=== PATIENT | male | born 1970 | race Caucasian/White ===

== ENCOUNTER 2021-07-18 12:30 | Emergency (ER) | payer OTHER ==
--- OUTSIDE RECORDS SUMMARY | 2021-07-18 12:39 | XMS REPORT | Continuity of Care Document ---
:1970 Author Organization [facility] t Address [address] [place] [address] Care Team Providers Name Role Phone VIVI Attending Clinician Unavailable RUSSELL LUO Attending Clinician Unavailable WILMA MONSIVAIS Attending Clinician Unavailable CARROLL VICTORIA Attending Clinician Unavailable GILSERA_L_WAG Attending Clinician Unavailable GILBERT_L_WAG Admitting Clinician Unavailable Payers Payer Name Policy Type Policy Number Effective Date Expiration Date S ource GROUP \T\ PENSION [id number] 2014 [employer] - [facility] 00:00:00 Problems This patient has no known problems. Allergies, Adverse Reactions, Alerts This patient has no known allergies or adverse reactions. Social History Smoking Status Start Date Stop Date Source Never Smoker Rosa Domínguez P joselyn Medications Ordered Filled Start Stop Current Ordering Indication Dosage Frequency Signature Comments Components Source Medication Medication Date Date Medication? Clinician (SIG) Name Name Augmentin Augmentin No 1 Q12H Augmentin [facility] 875 mg-125 875 mg-125 875 mg-125 Family mg tablet mg tablet mg tablet Practic Take 1 Take 1 Take 1 e tablet tablet tablet every 12 every 12 every 12 hours by hours by hours by oral route oral route oral route for 7 days. for 7 days. for 7 days. neomycin-po neomycin-po No neomycin-p [facility] lymyxin-hyd lymyxin-hyd olymyxin-h Family rocort 3.5 rocort 3.5 ydrocort Practic mg-10,000 mg-10,000 3.5 e unit/mL-1 % unit/mL-1 % mg-10,000 ear ear unit/mL-1 drops,susp drops,susp % ear INSTILL 4 INSTILL 4 drops,susp DROPS INTO DROPS INTO INSTILL 4 AFFECTED AFFECTED DROPS INTO EAR(S) BY EAR(S) BY AFFECTED OTIC ROUTE OTIC ROUTE EAR(S) BY 3 TIMES PER 3 TIMES PER OTIC ROUTE DAY DAY 3 TIMES PER DAY Vital Signs Vital Name Observation Time Observation Value Comments Source Height 2019-09-28 00:00:00 76 [in_i] [facility] Family Practice Procedures Procedure Date / Time Performed Performing Clinician Sour e Hernia Repair 2009-02-15 00:00:00 [facility] Michael paris Practice Knee Surgery 2005-02-15 00:00:00 [facility] raina Practice Encounters Start End Encounter Admission Attending Care Care Encounter Source Date/Time Date/Time Type Type Clinicians Facility Department ID 2021-06-09 2021-06-09 Outpatient TRINIDAD, [facility] [id number] [place] 00:00:00 00:00:00 ESTEPHANIE [address] [facility] 2021-06-04 2021-06-04 Emergency E ROYER LUO [facility] [id number] 11:05:00 18:02:[address] [facility] 2021-05-28 2021-05-28 Outpatient TRINIDAD, [facility] [id number] [place] 00:00:00 00:00:00 ESTEPHANIE [address] 2021-03-11 2021-03-11 Outpatient [facility] [id number] [place] 00:00:00 00:00:[address] 2020-12-26 2020-12-26 Outpatient WILMA MONSIVAIS, [facility] [id number] [place] 00:00:00 00:00:00 SHAHZAD [address] 2020-12-19 2020-12-19 Outpatient [facility] [id number] [place] 00:00:00 00:00:[address] 2020-10-23 2020-10-23 Outpatient [facility] [id number] [place] 00:00:00 00:00:[address] 2020-10-16 2020-10-16 Emergency E ROYER VICTORIA [facility] [id number] 13:03:00 15:51:[address] [facility] 2019-10-03 2019-10-03 Outpatient GILBERT_L_W VFP VFP [id number] [facility] 05:10:00 05:10:00 AG [id number] Family Practic e 2019-09-28 2019-09-28 Outpatient MICHAEL_L_W VFP VFP [id number] [facility] 01:02:00 01:02:00 AG [id number] Family Practic e 2019-09-28 2019-09-28 Rahul VFP [place] - [id number] [place] 00:00:00 00:00:00 [facility] Michael, Medical - Pract DO: 102 VM_HOU_N. e [facility] Adelaidalouise ([address], [facility] [place] [address] , Ph. Results This patient has no known results.
[2021-07-18 13:57] LABS: Absolute Lymphocytes (CBC) 2.1 K/uL (0.7-4.9); Lymphocytes % 25.8 % (15.3-44.8); MPV 7.7 fL (7.6-11.3); RBC Red Blood Cell Count 5.06 M/uL (4.33-5.43)
--- NOTE | 2021-07-18 13:58 | RAD REPORT ---
EXAM DESCRIPTION: CT - Head Brain Wo Cont - 07/18/2021 1:35 pm CLINICAL HISTORY: Headache, sudden, severe COMPARISON: No comparisons TECHNIQUE: Axial 5 mm thick images of the head were obtained without IV contrast. All CT scans are performed using dose optimization technique as appropriate and may include automated exposure control or mA/KV adjustment according to patient size. FINDINGS: Approximately 2.5 centimeter rounded area of heterogeneous hyperdense and hypodense materi al is seen in the superior aspect of the right cerebellum abutting the undersurface of the tentorium. The hyperdense component is suspicious for hemorrhage. This may be hemorrhage related to a mass rath er than CVA. Thickening and hyperdensity along the medial margin of the right-side tentorium may be h emorrhage extending along the undersurface of the tentorium. A focal intraparenchymal hematoma from C VA is a primary consideration. Hemorrhage related to a mass in the cerebellum would also be a conside ration. Elsewhere no mass lesion is seen. No acute cortical based infarction identifiable. No midline shift. Ventricles are normal. No significant atrophy or chronic ischemic changes seen. Mastoid air cells and visualized portions of the paranasal sinuses are clear. No acute bony findings. Findings telephoned to the referring clinician 1:49 p.m. IMPRESSION: Approximately 2.5 centimeter rounded mixed density mass superior aspect of the right cer ebellum. Hyperdense component is believed to be hemorrhage rather than dense or mineralized tissue. Small focus of hyperdensity along the undersurface of the right-side tentorium is believed to be subd ural blood extending from the focal intraparenchymal finding. Focal hypertensive or CVA related hemorrhage would be a primary consideration. However, the possibili ty of a hemorrhagic mass lesion is equally likely. No other acute intracranial finding.
[2021-07-18] MEDS ORDERED: LORazepam 2 MG/ML VIAL ONE (14:00)
[2021-07-18 14:03] LABS: Protime INR 0.92
[2021-07-18 14:19] LABS: Albumin 4.1 g/dL (3.4-5.0); Bilirubin Total 0.4 mg/dL (0.2-1.0); Potassium 3.8 mmol/L (3.5-5.1); Protein, Total 7.6 g/dL (6.4-8.2); Troponin High Sensitivity 5.1 pg/mL (<58.9)
[2021-07-18] MEDS ORDERED: MORPHINE 4 MG/ML SYR ONE ×2 (14:50→14:52)
[2021-07-18] MEDS ORDERED: ONDANSETRON 4 MG/2 ML VIAL ONE ×2 (14:50→14:52)
--- NOTE | 2021-07-18 15:02 | RAD REPORT ---
EXAM DESCRIPTION: CT - Head Brain Wo Cont - 07/18/2021 2:52 pm CLINICAL HISTORY: Headache, sudden, severe, acute mental status change, abnormal CT head COMPARISON: Head Brain Wo Cont dated 07/18/2021 TECHNIQUE: Axial 5 mm thick images of the head were obtained without IV contrast. All CT scans are performed using dose optimization technique as appropriate and may include automated exposure control or mA/KV adjustment according to patient size. FINDINGS: The right superior cerebellum intraparenchymal hemorrhage or hemorrhagic mass has enlarged , now measuring 2.9 x 3.5 cm. The subdural hemorrhagic component along the undersurface of the tentor ium has also enlarged slightly. Localized mass effect has developed with the right lateral margin of the fourth ventricle compressed. Lateral and third ventricles are still normal range. No other site o f hemorrhage or focal abnormality. Mastoid air cells and visualized portions of the paranasal sinuses are clear. No acute bony findings. IMPRESSION: Previously detailed right cerebellum intraparenchymal hemorrhage or hemorrhagic mass aga in noted with the hemorrhagic component enlarging. Overall dimensions are now 2.9 x 3.5 cm compared t o 2.5 x 2.5 cm. The subdural hemorrhagic extension along the undersurface of the right-side tentorium has also increa sed now up to 7 mm in thickness. No midline shift has occurred though there is now partial compression along the right lateral margin of the fourth ventricle.
--- NOTE | 2021-07-18 15:04 | ER ---
Nurse's Notes [facility] Name: Lauro Mark Age: 51 yrs Sex: Male : 1970 Arrival Date: 07/18/2021 Time: 12:32 Bed 16 Private MD: Diagnosis: Nontraumatic intracranial hemorrhage, unspecified Presentation: 07/18 12:59 Chief complaint: Patient states: sudden headache began about hour ago to right side of vg1 head; denies cough, NVD, blurred vision, dizziness, or sensitivity to light. Coronavirus screen: Vaccine status: Patient reports being unvaccinated. Client denies travel out of the [place] in the last 14 days. Ebola Screen: Patient denies exposure to infectious person. Patient denies travel to an Ebola-affected area in the 21 days before illness onset. Initial Sepsis Screen: Does the patient meet any 2 criteria? No. Patient's initial sepsis screen is negative. Does the patient have a suspected source of infection? No. Patient's initial sepsis screen is negative. Risk Assessment: Do you want to hurt yourself or someone else? Patient reports no desire to harm self or others. Onset of symptoms was July 18, 2021. 12:59 Method Of Arrival: Ambulatory vg1 12:59 Acuity: YULISSA 3 vg1 Triage Assessment: 13:00 Headache History: The patient has had previous headaches and this one is more severe vg1 than previous episodes. General: Appears uncomfortable, Behavior is cooperative. Pain: Complains of pain in head Pain currently is 8 out of 10 on a pain scale. Pain began suddenly, 1 hour ago. Also complains of no other associated symptoms. Neuro: Smith Agitation-Sedation Scale (RASS): 0 - Alert and Calm Level of Consciousness is awake, alert, obeys commands, Oriented to person, place, time, situation, Airplane Mechanic are equal bilaterally Moves all extremities. Gait is steady, Speech is normal, Facial symmetry appears normal. Historical: - Allergies: 13:00 No Known Allergies; vg1 - Home Meds: 13:00 Aspirin Oral [Active]; Zoloft Oral [Active]; vg1 - PMHx: 13:00 Anxiety; vg1 - PSHx: 13:00 Hiatal Hernia; vg1 - Immunization history:: Client reports having NOT received the Covid vaccine. - Social history:: Smoking status: Patient reports use of chewing tobacco. Screenin:16 Abuse screen: Denies threats or abuse. Nutritional screening: No deficits noted. ap3 Tuberculosis screening: No symptoms or risk factors identified. Fall Risk None identified. Assessment: 14:09 Reassessment: Patient and/or family updated on plan of care and expected duration. Pain ap3 level reassessed. Patient is alert, oriented x 3, equal unlabored respirations, skin warm/dry/pink. at bedside. Pain: Complains of pain in right amish and right ear and right eye. 14:15 Reassessment: Patient appears in no apparent distress at this time. ap3 15:27 Reassessment: patient complaining of increased right sided head pain. provider ap3 notified. new orders received. patient now appears diaphoretic, pale and has had an increase in respirations. Vital Signs: 12:59 BP 140 / 101; Pulse 90; Resp 18; Temp 98.6; Pulse Ox 98% on R/A; Weight 122.47 kg; vg1 Height 6 ft. 4 in. (193.04 cm); Pain 8/10; 14:10 BP 140 / 104; Pulse 85; Pulse Ox 96% on R/A; ap3 14:54 BP 146 / 96; Pulse 81; Resp 26; Pulse Ox 97% on R/A; ap3 15:26 BP 155 / 92; Pulse 81; Pulse Ox 99% on 2 lpm NC; ap3 12:59 Body Mass Index 32.87 (122.47 kg, 193.04 cm) vg1 NIH Stroke Scale Scores: 13:59 NIHSS Score: 0 ap3 ED Course: 12:32 Patient arrived in ED. jj6 12:39 Surinder Isaacs PA is PHCP. jmm 12:39 Nabor Cardona MD is Attending Physician. jmm 13:00 Triage completed. vg1 13:00 Arm band placed on. vg1 13:04 Vonnie Velazquez, EDITH is Primary Nurse. ap3 13:15 Initial lab(s) drawn, by me. Inserted saline lock: 22 gauge in left antecubital area, vg1 using aseptic technique. Blood collected. 13:16 Patient has correct armband on for positive identification. Placed in gown. Bed in low ap3 position. Call light in reach. Side rails up X2. awake overnight monitor on. Pulse ox on. NIBP on. Door closed. Noise minimized. 13:37 CT Head Brain wo Cont In Process Unspecified. EDMS 13:55 initiated a transfer with Paty from the [facility] at the request of eb the patient. 13:59 Inserted saline lock: 20 gauge in right antecubital area, using aseptic technique. ap3 14:21 connected the neurosurgeon steam station supervisor for [facility] with Surinder Naylor for patient transfer eb consultation. 14:23 connected the propellant charge zone assembler steam station supervisor for [facility] with Surinder Naylor for patient transfer eb consultation. 14:28 administrative approval given by Paty Narvaez/ patient has been accepted to [facility] pending a bed/ Dr. Jimmy Dee has accepted the patient in transfer/. 14:53 CT Head Brain wo Cont In Process Unspecified. EDMS 15:25 No provider procedures requiring assistance completed. Patient transferred, IV remains ap3 in place. Administered Medications: 13:59 Drug: Ativan (LORazepam) 1 mg Route: IVP; Site: left antecubital; ap3 15:22 Follow up: Response: No adverse reaction ap3 15:00 Drug: morphine 4 mg Route: IVP; Infused Over: 4 mins; Site: left antecubital; ap3 15:24 Follow up: Response: No adverse reaction; Pain is unchanged, physician notified ap3 15:00 Drug: Zofran (Ondansetron) 4 mg Route: IVP; Site: left antecubital; ap3 15:24 Follow up: Response: No adverse reaction; Nausea unchanged ap3 15:23 Drug: fentaNYL (PF) 50 mcg Route: IVP; Site: left antecubital; ap3 15:24 Follow up: Response: No adverse reaction ap3 Medication: 13:16 VIS not applicable for this client. ap3 Outcome: 15:03 ER care complete, transfer ordered by MD. graham 15:25 Transferred by helicopter to [facility]. ap3 15:25 critical 15:25 Discharge instructions given to patient, family, Instructed on the need for transfer, Demonstrated understanding of instructions. 15:39 Patient left the ED. ap3 NIH Stroke Scale - NIH Stroke Score Date: 07/18/2021 Time: 13:59 Total Score = 0 1a. Level of Consciousness (LOC) - 0(Alert) 1b. Level of Consciousness (LOC) (Month \T\ Age) - 0(Both) 1c. LOC Commands (Open \T\ Closes Eyes/Public Health Informatician) - 0(Both) 2. Best Gaze (Lateral Gaze Paresis) - 0(Normal) 3. Visual Field Loss - 0(No visual loss) 4. Facial Palsy - 0(Normal) 5a. Left Arm: Motor (10-second hold) - 0(No drift) 5b. Right Arm: Motor (10-second hold) - 0(No drift) 6a. Left Leg: Motor (5-second hold - always test supine) - 0(No drift) 6b. Right Leg: Motor (5-second hold - always test supine) - 0(No drift) 7. Limb Ataxia (finger/nose \T\ heel/darby - test with eyes open) - 0(Absent) 8. Sensory Loss (pinprick arms/legs/face) - 0(Normal) 9. Best Language: Aphasia (description/naming/reading) - 0(No aphasia) 10. Dysarthria (speech clarity - read or repeat words) - 0(Normal) 11. Extinction and Inattention (visual/tactile/auditory/spatial/personal) - 0(No abnormality) Initials: ap3 Signatures: Dispatcher [employer] Surinder Martinez PA PA jmm Prokisch, Amanda RN RN ap3 Analilia Ray Victoria, RN RN vg1 Aiyana Augustin6
--- NOTE | 2021-07-18 15:04 | EDPHYS ---
Physician Documentation [facility] Name: Lauro Mark Age: 51 yrs Sex: Male : 1970 Arrival Date: 07/18/2021 Time: 12:32 Bed 16 Private MD: LIBBY Physician Nabor Cardona HPI: 07/18 13:05 This 51 yrs old Male presents to ER via Ambulatory with complaints of Headache. jmm 13:05 The patient complains of pain to the right eye, right ear and right jewish. Onset: The jmm symptoms/episode began/occurred acutely, just prior to arrival. Associated signs and symptoms: Pertinent negatives: there are no associated signs or symptoms. Severity of symptoms: At its worst the pain was the "worst in my life". Headache History: Denies prior headaches. The patient has not experienced similar symptoms in the past. Historical: - Allergies: 13:00 No Known Allergies; vg1 - Home Meds: 13:00 Aspirin Oral [Active]; Zoloft Oral [Active]; vg1 - PMHx: 13:00 Anxiety; vg1 - PSHx: 13:00 Hiatal Hernia; vg1 - Immunization history:: Client reports having NOT received the Covid vaccine. - Social history:: Smoking status: Patient reports use of chewing tobacco. ROS: 13:05 Constitutional: Negative for fever, chills, and weight loss, Cardiovascular: Negative jmm for chest pain, palpitations, and edema, Respiratory: Negative for shortness of breath, cough, wheezing, and pleuritic chest pain. 13:05 Neuro: Positive for headache. 13:05 All other systems are negative. Exam: 13:05 Constitutional: This is a well developed, well nourished patient who is awake, alert, jmm and in no acute distress. Head/Face: atraumatic. Eyes: EOMI, no conjunctival erythema appreciated ENT: Moist Mucus Membranes Neck: Trachea midline, Supple Chest/axilla: Normal chest wall appearance and motion. Cardiovascular: Regular rate and rhythm. No edema appreciated Respiratory: Normal respirations, no respiratory distress appreciated Abdomen/GI: Non distended, soft Back: Normal ROM Skin: General appearance color normal MS/ Extremity: Moves all extremities, no obvious deformities appreciated, no edema noted to the lower extremities 13:05 Neuro: Orientation: is normal, Mentation: is normal, Memory: is normal, Cerebellar function: is grossly normal, Motor: is normal, Sensation: is normal. 13:05 Psych: Behavior/mood is pleasant, cooperative. Vital Signs: 12:59 BP 140 / 101; Pulse 90; Resp 18; Temp 98.6; Pulse Ox 98% on R/A; Weight 122.47 kg; vg1 Height 6 ft. 4 in. (193.04 cm); Pain 8/10; 14:10 BP 140 / 104; Pulse 85; Pulse Ox 96% on R/A; ap3 14:54 BP 146 / 96; Pulse 81; Resp 26; Pulse Ox 97% on R/A; ap3 15:26 BP 155 / 92; Pulse 81; Pulse Ox 99% on 2 lpm NC; ap3 12:59 Body Mass Index 32.87 (122.47 kg, 193.04 cm) vg1 NIH Stroke Scale Scores: 13:59 NIHSS Score: 0 ap3 MDM: 13:05 Patient medically screened. radah 14:37 Data reviewed: vital signs, nurses notes. Counseling: I had a detailed discussion with gladys the patient and/or guardian regarding: the historical points, exam findings, and any diagnostic results supporting the discharge/admit diagnosis, lab results, the need to transfer to another facility. ED course: Patient requested transfer to [facility]. I discussed the patient with neurosurgery and icu whom accepted the patient. . 07/18 13:41 Order name: CBC with Diff; Complete Time: 14:[address] [facility] 07/18 13:41 Order name: CMP; Complete Time: 14:[address] [facility] 07/18 13:16 Order name: CT Head Brain wo Cont; Complete Time: 13:[address] [facility] 07/18 13:41 Order name: SARS-COV-2 RT PCR (Document "Date of Onset" if Symptomatic); Complete Time: [facility] 14:52 07/18 13:41 Order name: PT-INR; Complete Time: 14:[address] [facility] 07/18 13:42 Order name: Troponin High Sensitivity; Complete Time: 14:[address] [facility] 07/18 13:16 Order name: Saline Lock; Complete Time: 13:[address] [facility] 07/18 13:42 Order name: EKG - Nurse/Tech; Complete Time: 13:[address] [facility] 07/18 14:45 Order name: CT Head Brain wo Cont; Complete Time: 15:03 jmm Administered Medications: 13:59 Drug: Ativan (LORazepam) 1 mg Route: IVP; Site: left antecubital; ap3 15:22 Follow up: Response: No adverse reaction ap3 15:00 Drug: morphine 4 mg Route: IVP; Infused Over: 4 mins; Site: left antecubital; ap3 15:24 Follow up: Response: No adverse reaction; Pain is unchanged, physician notified ap3 15:00 Drug: Zofran (Ondansetron) 4 mg Route: IVP; Site: left antecubital; ap3 15:24 Follow up: Response: No adverse reaction; Nausea unchanged ap3 15:23 Drug: fentaNYL (PF) 50 mcg Route: IVP; Site: left antecubital; ap3 15:24 Follow up: Response: No adverse reaction ap3 Disposition Summary: 07/18/21 15:03 Transfer Ordered Transfer Location: [facility] jmm Reason: Higher level of care jmm Condition: Stable jmm Problem: new jmm Symptoms: have worsened jmm Accepting Physician: Dr. Dee(07/18/21 15:39) ap3 Diagnosis - Nontraumatic intracranial hemorrhage, unspecified jmm Discharge Instructions: - Discharge Summary Sheet eb Forms: - Medication Reconciliation Form eb - SBAR form eb NIH Stroke Scale - NIH Stroke Score Date: 07/18/2021 Time: 13:59 Total Score = 0 1a. Level of Consciousness (LOC) - 0(Alert) 1b. Level of Consciousness (LOC) (Month \\T\\ Age) - 0(Both) 1c. LOC Commands (Open \\T\\ Closes Eyes/Strategic Sourcing Manager) - 0(Both) 2. Best Gaze (Lateral Gaze Paresis) - 0(Normal) 3. Visual Field Loss - 0(No visual loss) 4. Facial Palsy - 0(Normal) 5a. Left Arm: Motor (10-second hold) - 0(No drift) 5b. Right Arm: Motor (10-second hold) - 0(No drift) 6a. Left Leg: Motor (5-second hold - always test supine) - 0(No drift) 6b. Right Leg: Motor (5-second hold - always test supine) - 0(No drift) 7. Limb Ataxia (finger/nose \\T\\ heel/darby - test with eyes open) - 0(Absent) 8. Sensory Loss (pinprick arms/legs/face) - 0(Normal) 9. Best Language: Aphasia (description/naming/reading) - 0(No aphasia) 10. Dysarthria (speech clarity - read or repeat words) - 0(Normal) 11. Extinction and Inattention (visual/tactile/auditory/spatial/personal) - 0(No abnormality) Initials: ap3 Signatures: Dispatcher [employer] EDNabor Gonzalez MD MD cha Mickail, Joel, PA PA jmm Prokisch, Amanda RN RN ap3 Adriana Orta RN RN vg1 Corrections: (The following items were deleted from the chart) 15:39 15:03 Dr. Leila graham ap3
[2021-07-18] MEDS ORDERED: FENTANYL CITR 100 MCG/2 ML ONE (15:07)
[2021-07-18 15:43] VITALS: TEMP 98.6
[2021-07-18 15:48] VITALS: BP 155/92; O2SAT 99
--- NOTE | 2021-07-21 13:25 | EKG ---
Test Date: 2021-07-18 Test Time: 13:44:09 Pilot Captain: KENNETH MEASUREMENT RESULTS: Intervals: Rate: 78 IN: 170 QRSD: 74 QT: 378 QTc: 430 Gardner: P: 23 IN: 170 QRS: -7 T: 37 INTERPRETIVE STATEMENTS: Normal sinus rhythm Normal ECG No previous ECG available for comparison Electronically Signed On 07-21-21 13:22:48 CDT by Pito Warner
== END 2021-07-18 15:39 | disposition short-term general hospital (02) ==
LOC: ER 12:30
DX: I62.9 Nontraumatic intracranial hemorrhage, unspecified (principal); U07.1 COVID-19; R29.700 NIHSS score 0; F41.9 Anxiety disorder, unspecified; F17.220 Nicotine dependence, chewing tobacco, uncomplicated; Z79.82 Long term (current) use of aspirin
CPT/HCPCS: 93005; 85025; 36415; 85610; 84484; 80053; 70450 ×2; 96375; 96374; 99285; U0003; J3010; J2405